=== PATIENT | male | born 2000 | race Caucasian/White ===

== ENCOUNTER 2022-06-07 14:23 | Emergency (ER) | payer BC, SELFPAY ==
[2022-06-07 14:59] VITALS: BP 138/71; PULSE 93; RESP 20; TEMP 37.1; O2SAT 98
== END 2022-06-07 16:22 | disposition left against medical advice (07) ==
LOC: EXPBETH 14:28
PROVIDERS: Emergency Provider Nurse Practitioner
DX: Z11.3 Encounter for screening for infections with a predominantly sexual mode of transmission (principal)
CPT/HCPCS: 81003; 87491; 87591; 87661; 99199